=== PATIENT | female | born 1950 | race Caucasian/White ===

== ENCOUNTER 2019-01-23 09:56 | Emergency (ER) | payer MEDICARE ==
[~2019-01-23] VITALS: Ht 162.6 cm; Wt 60.0 kg
[2019-01-23] MEDS ORDERED: KETOROLAC 30 MG/1 ML ONE (10:28)
[2019-01-23] MEDS ORDERED: MORPHINE SULFATE 4 MG/ML, 1ML ONE (10:28)
[2019-01-23] MEDS ORDERED: KETOROLAC 30 MG/1 ML IVPush ONE (10:30)
[2019-01-23] MEDS ORDERED: MORPHINE SULFATE 4 MG/ML, 1ML IVPush PRN (10:30)
[2019-01-23] MEDS ORDERED: ONDANSETRON 2MG/ML, 2ML ONE (10:40)
[2019-01-23 10:43] LABS: BASOPHILS # (AUTO) 0.08 x10^3/uL (0-0.1); BASOPHILS % (AUTO) 1 % (0-1); EOSINOPHILS # (AUTO) 0.05 x10^3/uL (0-0.4); EOSINOPHILS % (AUTO) 1 % (1-7); LYMPHOCYTES # (AUTO) 1.24 x10^3/uL (1-3.4); LYMPHOCYTES % (AUTO) 11 % (22-44); MD NO; MEAN CORPUSCULAR HEMOGLOBIN 31.8 pg (27.0-34.8); MEAN CORPUSCULAR HGB CONC 33.9 g/dL (32.4-35.8); MEAN CORPUSCULAR VOLUME 93.7 fL (80-100); MEAN PLATELET VOLUME 8.6 fL (7.4-10.4); MONOCYTES # (AUTO) 0.52 x10^3/uL (0.2-0.8); MONOCYTES % (AUTO) 5 % (2-9); NEUTROPHILS # (AUTO) 9.27 x10^3/uL (1.8-6.8); NEUTROPHILS % (AUTO) 83 % (42-75); PLATELET COUNT 289 x10^3/uL (130-400); RED BLOOD COUNT 4.76 x10^6/uL (3.82-5.3); RED CELL DISTRIBUTION WIDTH 14.2 % (9.6-15.2)
[2019-01-23 10:52] LABS: MICROSCOPIC NOT IND
[2019-01-23 10:54] LABS: CULTURE INDICATED? NO
[2019-01-23 10:58] LABS: CHLORIDE 114 mmol/L (98-107)
[2019-01-23] MEDS ORDERED: ONDANSETRON 2MG/ML, 2ML IVPush ONE (11:00)
[2019-01-23 11:21] LABS: ALBUMIN 4.6 g/dL (3.4-5.0); ANION GAP 8 mmol/L (5-15); CALCIUM 9.4 mg/dL (8.5-10.1); CREATININE 0.97 mg/dL (0.55-1.02)
--- NOTE | 2019-01-23 13:04 | NUR ---
TANNER LUCIO IS DISCHARGING THE PT. FOR THE PRIMARY CARE RN. PT. STATES RELIEF FROM PAIN MEDS. VSS. PT. WAS GIVEN DISCHARGE INSTRUCTIONS AND SCRIPTS WITH UNDERSTANDING VERBALIZED ALONG WITH WILLINGNESS TO COMPLY. PT.'S IV WAS DCD',CATH TIP INTACT. PRESSURE HELD WITH HEMOSTASIS ACHIEVED. PT. WAS AMBULATORY TO THE DISCHARGE DESK. VSS.
[2019-01-23 13:07] VITALS: BP 141/54
== END 2019-01-23 13:09 | disposition home or self-care (01) ==
LOC: ED 11:59
DX: N13.2 Hydronephrosis with renal and ureteral calculous obstruction (principal); I10 Essential (primary) hypertension
CPT/HCPCS: 36415; 74176; 80048; 81003; 82040; 85025; 96374; 96375; 99284; J1885; J2405